=== PATIENT | male | born 1955 | race Caucasian/White ===

== ENCOUNTER 2019-08-14 08:25 | Outpatient (CLI) | payer OTHER, SELFPAY | END 2019-08-14 08:26 | disposition home or self-care (01) | LOC: ANHSURGERY 08:28 | PROVIDERS: PCP Family Medicine Sports Medicine; Visit Provider Surgery | DX: Z01.818 Encounter for other preprocedural examination (principal); K40.90 Unilateral inguinal hernia, without obstruction or gangrene, not specified as recurrent | CPT/HCPCS: 36415; 86850; 86900; 86901 ==

== ENCOUNTER 2019-08-20 00:18 | Outpatient (CLI) | payer OTHER, SELFPAY ==
[2019-08-20 17:01] LABS: SARS-CoV-2 RNA PCR Negative
== END 2019-08-20 00:19 | disposition home or self-care (01) ==
LOC: ANHCOVIDDT 00:18
PROVIDERS: PCP Family Medicine Sports Medicine; Visit Provider Surgery
DX: Z01.818 Encounter for other preprocedural examination (principal); Z11.59 Encounter for screening for other viral diseases
CPT/HCPCS: 87635; C9803; U0003

== ENCOUNTER 2019-08-22 00:30 | Day surgery (SDC) | payer OTHER, SELFPAY ==
[2019-08-09 15:57] VITALS: BMI 24.1
--- NOTE | 2019-08-21 12:19 | P.PNAN_ITS ---
Anes - Initial Pre Proc Eval Procedure: Operation Date: 08/22/19 07:30 Proposed Procedures p Laparoscopic Right Inguinal Hernia Repair With Mesh, Davinci Assisted - Caesar Prasad DO Date/Time: 08/21/19 12:19 Surgeon: Caesar Prasad DO Pre Op Diagnosis: Right Inguinal Hernia Patient Data Age: 63 Gender: M Height: 6 ft Weight: 80.74 kg Allergies Allergy/AdvReac Type Severity Reaction Status Date / Time No Known Allergies Allergy Verified 08/09/19 15:58 Home Medications Medication Instructions Recorded Confirmed Type Vitality Complex 1 cap PO BID 08/09/19 History triamcinolone acetonide [Nasacort] 1 spray INTRANASAL DAILY PRN 08/09/19 08/22/19 History Patient hx anesthesia problems: none Family hx anesthesia problems: none [facility] Social History Social History Smoking status: Never smoker Alcohol intake: never Substance use: never Anes - Eval Final PreProcedure Day of Procedure 08/21/19 12:19 Patient weight: normal Heart: regular rate and rhythm Lungs: clear to auscultation Airway: Mallampati scale class II Neurological: alert and oriented Last oral intake: >/= 8 hours ASA classification: II Emergent: no Anesthetic plan: proceed Anesthesia type and monitoring: general ETT and standard monitoring Informed Consent: The patient's anesthetic plan and its attendant risks and benefits were discussed with the patient/family/POA. Questions were solicited and answers provided to the satisfaction of the patient/family/POA.
[2019-08-22] VITALS (13 sets, daily range): BP systolic 78–133; BP diastolic 50–72; PULSE 50–74; RESP 10–14; TEMP 36.4–36.5; O2SAT 98–100
[2019-08-22] MEDS: LACTATED RINGERS 1,000 ML 30 ML IV CONT ×3 (06:50→09:18)
[2019-08-22] MEDS: IBUPROFEN IV 800 MG/200 ML 800 MG/200 ML BAG 400 MG IVPB (06:57)
--- NOTE | 2019-08-22 07:07 | WPDHPUPDATE1 ---
History and Physical Update Update Date/Time: 08/22/19 07:07 History and Physical has been reviewed, including an updated exam of the patient. There are NO changes in the patient's condition. Risks, benefits, and alternatives have been discussed and questions answered. Patient agrees to proceed with procedure.
[2019-08-22] MEDS: ceFAZolin 2 GM/D5W 50 ML 2 GM/50 ML BAG IVPB (07:22)
[2019-08-22] MEDS: BUPIVACAINE/EPINEPHRINE 0.5% 30 ML VIAL INFILTRATE (08:02)
--- NOTE | 2019-08-22 08:22 | PM.PROC ---
Procedure Note - Detailed Date of procedure: 08/22/19 Pre-op diagnosis: Right Inguinal Hernia Post-op diagnosis: same ([facility]) Procedure performed: Laparoscopic right inguinal hernia repair with Progrip mesh, da Erinn assisted Description of procedure: Procedure as well as risks, benefits, and alternatives were discussed with the patient. Written consent was obtained and placed in chart prior to procedure. Patient was brought back to surgical suite. He was placed supine on operating table. Time-out was done to confirm patient and procedure. He was then intubated by Anesthesia Department. His abdomen was prepped and draped in sterile fashion using chlorhexidine prep. 0.5% bupivacaine with epinephrine was infiltrated at each location for incision. A 12 millimeter transverse incision was made just superior to the umbilicus using a 15 blade scalpel. Blunt dissection was carried out down to the linea alba. A vertical incision was made at the linea alba using a 15 blade scalpel. The peritoneum was then bluntly entered. A 12 millimeter trocar was inserted and carbon dioxide insufflation was used to create a pneumoperitoneum. A camera was inserted and the abdominal cavity was inspected. The patient was placed in slight Trendelenburg position. An 8 millimeter incision was made on the right lateral abdomen and an 8 millimeter trocar was inserted under direct visualization. Another 8 millimeter incision was made in the left lateral abdomen and an 8 millimeter trocar was inserted under direct visualization. The robotic arms were brought up to the patient's bedside and secured to the ports. The camera and instruments were inserted. I then moved over to the robotic console and took control of the camera and instruments. After careful inspection of the abdominal cavity, I began scoring the peritoneum along the right lower quadrant using scissors with electrocautery. The preperitoneal plane was entered and this was carefully dissected caudally along the inferior epigastric vessels. Careful dissection with scissors with electrocautery and blunt dissection was used to continue this dissection. I dissected far enough laterally to allow for mesh placement, and also dissected medially to identify the pubic arch and Peter's ligament. The hernia sac was identified and carefully dissected posteriorly. The cord contents were also identified and the peritoneum was carefully dissected far enough posteriorly to allow for mesh placement. Once an adequate pocket was created, I then placed the mesh within the preperitoneal pocket and carefully unfolded it. The mesh was centered on the hernia defect with adequate overlap circumferentially. The inferior edge of the mesh was inspected to ensure that it was far enough away from the peritoneal edge. The mesh appeared in proper position overlying the entire myopectineal orifice. The peritoneum was then closed over the mesh using a 3-0 V-lock running absorbable suture. The robotic instruments were removed. The robotic arms were disengaged from the ports and moved away from the bedside. The patient was flattened out in bed, the ports were removed under direct visualization, and the pneumoperitoneum was released. The fascia of the umbilical incision was approximated using an 0 Vicryl [id number] suture. The skin of the incisions was approximated using 4-0 Monocryl subcuticular suture, and Exofin glue was applied on top. The patient was awakened from anesthesia, extubated, and transferred to recovery. Implants: Progrip Mesh 10cm x 15cm Anesthesia: GETA and local (0.5% bupivicaine with epi) Surgeon: Caesar Prasad DO Estimated blood loss (mL): 5 Drains: No Packing: No Pathology: none sent Complications: No immediate complications Condition: stable Disposition: same day Findings: Mr Rios is a 63 year old male that presents with a right inguinal hernia. Patient reports he first noticed a lump in the right groin the f
== END 2019-08-22 11:49 | disposition home or self-care (01) ==
PROVIDERS: PCP Family Medicine Sports Medicine; Visit Provider Surgery
PROC: 8E0Y4CZ Robotic Assisted Procedure of Lower Extremity, Percutaneous Endoscopic Approach (ICD-10-PCS; CPT 49650; principal; 2019-08-22 07:30)
DX: K40.90 Unilateral inguinal hernia, without obstruction or gangrene, not specified as recurrent (principal)
CPT/HCPCS: 49650; S2900; A9270; C1781; J0690; J1100; J1170; J1741; J2250; J2405; J2704; J3010; J7120

== ENCOUNTER 2021-11-24 09:25 | Emergency (ER) | payer MEDICARE, SELFPAY ==
--- NOTE | 2021-11-24 09:31 | ECG_ITS ---
Measurements Intervals [place] Rate: 60 P: 67 [place]: 152 QRS: 14 QRSD: 86 T: 24 QT: 403 QTc: 404 Interpretive Statements SINUS RHYTHM WITH SINUS ARRHYTHMIA ANTEROSEPTAL ST ELEVATION MYOCARDIAL INFARCT- ACUTE RECIPROCAL ST DEPRESSION IN INFERIOR LEADS ABNORMAL ECG NO PREVIOUS ECG AVAILABLE FOR COMPARISON Electronically Signed On 11-24-2021 12:23:18 CDT by Cole Rosenbaum D.O.
[2021-11-24 09:34] VITALS: BP 133/73; PULSE 64; RESP 16; TEMP 36.4; O2SAT 100
--- NOTE | 2021-11-24 09:46 | ED.CHESTPAIN ---
HPI - Chest Pain General Chief Complaint: Chest Pain Stated Complaint: CHEST PAIN THIS AM Time Seen by Provider: 11/24/21 09:35 Source: patient and family Mode of arrival: ambulatory Limitations: no limitations History of Present Illness HPI narrative: 66 years old white male drove himself to the emergency room complaining of chest pain, retrosternal, tightness radiating to right upper extremity with diaphoresis started prior to arrival to the emergency room. 8 out of 10, 30 minutes after workout. Patient does not take medicine at home, his older brother of heart attack. Patient does not smoke or drink or uses drugs. Had full dose aspirin prior to arrival. Patient reported that the pain started within 1 hour prior to arrival to the emergency room Related Data Home Medications Medication Instructions Recorded Confirmed Vitality Complex 1 cap PO BID 08/09/19 09/10/19 triamcinolone acetonide 55 mcg 1 spray intranasal DAILY PRN 08/09/19 09/10/19 nasal spray aerosol (Nasacort) Allergic Symptoms Allergies Allergy/AdvReac Type Severity Reaction Status Date / Time No Known Allergies Allergy Verified 11/24/21 09:45 Review of Systems Review of Systems: All systems reviewed & are unremarkable except as noted in HPI and below PMFSH Past Medical History Medical History (Updated 11/24/21 @ 10:08 by Alena Narvaez MD) History of asthma Surgical History Surgical History History of inguinal hernia repair Laparoscopic right inguinal hernia repair with progrip mesh, daVincini assisted 08/22/19 History of knee surgery both knees Family History Family History Father No problems noted. Mother COPD (chronic obstructive pulmonary disease) Sibling Heart attack Sibling Cerebrovascular accident Social History Social History Smoking status: Never smoker Alcohol intake: never Substance use: never Exam Narrative: General appearance: Well-developed, well-nourished Skin: Pale, diaphoretic Head: Normocephalic, nontraumatic Eyes: Clear conjunctiva ENT: Oropharynx normal, ears normal, nose normal Neck: Supple, nontender Chest and respiratory: Airway patent, no respiratory distress, no accessory muscle use Heart: Regular rate/rhythm Abdomen: Soft, nontender, no organomegaly, quiet bowel sounds Vascular: Normal peripheral pulses, normal capillary refill. Musculoskeletal: Normal range of motion, nontender back Neurologic: Alert and oriented ?3, [employer] is normal as tested, no gross motor deficit Course Consultations Consultation #1: dr cruz Date: 11/24/21 Time: 10:09 Consultation #2: dr richard/emergency room at [facility] Date: 11/24/21 Time: 10:10 Vital Signs Vital signs: Vital Signs Temperature 36.4 C L 11/24/21 09:34 Pulse Rate 64 11/24/21 09:34 Respiratory Rate 16 11/24/21 09:34 Blood Pressure 133/73 11/24/21 09:34 Pulse Oximetry 100 11/24/21 09:34 Oxygen Delivery Room Air 11/24/21 09:34 Temperature 36.4 C L 11/24/21 09:34 Pulse Rate 66 11/24/21 10:25 Respiratory Rate 16 11/24/21 10:25 Blood Pressure 134/87 11/24/21 10:25 Pulse Oximetry 98 11/24/21 10:25 Oxygen Delivery Room Air 11/24/21 09:44 MDM - Chest Pain MDM Narrative Medical decision making narrative: Cardiac cath is busy at this time. Having a patient with a STEMI 5 minutes prior to patient arrival to our emergency room., [employer] Gr[employer] Operator/Dr. cruz agreed with the EKG abnormality and it is very suspi
[2021-11-24 09:50] LABS: Basophils Percent Auto 0.4 % (0.2-1.2); Eosinophils Absolute Auto 0.3 K/mm3 (0-0.3); Eosinophils Percent Auto 4.2 % (0-4.4); Hemoglobin 15.3 g/dL (14.0-18.0); Immature Granulocyte Absolute 0.01 K/mm3 (0.00-0.031); Immature Granulocyte Percent A 0.1 % (0-0.5); Lymphocytes Absolute Auto 2.42 K/mm3 (0.9-3.2); Lymphocytes Percent Auto 33.8 % (18.3-44.2); Mean Corpuscular Hemoglobin 31.2 pg (26-34); Mean Corpuscular Volume 91.6 fl (80-100); Monocytes Absolute Auto 0.5 K/mm3 (0.1-0.6); Monocytes Percent Auto 7.3 % (2.6-8.5); Neutrophils Absolute Auto 3.9 K/mm3 (1.3-6.7); Neutrophils Percent Auto 54.2 % (45.5-73.1); Platelet Count Result 181 k/mm3 (150-375); Red Blood Count 4.91 M/mm3 (4.6-6.20); White Blood Count 7.2 K/mm3 (4.5-10.0)
[2021-11-24 10:02] LABS: Alanine Aminotransferase 22 U/L (6-50); Albumin Level 4.4 g/dL (3.5-5.1); Alkaline Phosphatase 79 U/L (38-126); Anion Gap 10 mmol/L (8-16); Aspartate Amino Transferase 31 U/L (17-59); Bilirubin,Total 0.4 mg/dL (0.2-1.3); Blood Urea Nitrogen 18 mg/dL (9-20); Calcium 9.2 mg/dL (8.4-10.2); Carbon Dioxide 24 mmol/L (22-30); Chloride 104 mmol/L (98-107); Estimated CRCL calculation 64 ml/min; Estimated Glomerular Filt Rate > 60; Glucose 153 mg/dL (65-110); Lipase 121 U/L (23-300); Potassium 3.7 mmol/L (3.4-5.0); Sodium 138 mmol/L (137-145)
[2021-11-24 10:03] LABS: Prothrombin Time 12.6 Seconds (11.1-14.7)
[2021-11-24 10:04] LABS: Partial Thromboplastin Time 25.7 SECONDS (22.3-36.8)
[2021-11-24 10:17] LABS: Troponin I 0.062 ng/mL (0.000-0.034)
--- NOTE | 2021-11-24 10:21 | ECG_ITS ---
Measurements Intervals [place] Rate: 68 P: 60 [place]: 165 QRS: -14 QRSD: 87 T: 14 QT: 400 QTc: 426 Interpretive Statements SINUS RHYTHM LOW QRS VOLTAGE IN PRECORDIAL LEADS ANTEROSEPTAL ST ELEVATION MYOCARDIAL INJURY- ACUTE ABNORMAL ECG COMPARED TO ECG 11/24/2021 09:38:48 NO SIGNIFICANT CHANGES Electronically Signed On 11-24-2021 16:49:59 CDT by Cole Rosenbaum D.O.
[2021-11-24 10:25] VITALS: BP 134/87; PULSE 66; RESP 16; O2SAT 98
== END 2021-11-24 10:28 | disposition short-term general hospital (02) ==
PROVIDERS: Emergency Provider Emergency Medicine; PCP Family Medicine Sports Medicine
DX: I21.09 ST elevation (STEMI) myocardial infarction involving other coronary artery of anterior wall (principal); J45.909 Unspecified asthma, uncomplicated
CPT/HCPCS: 36415; 80053; 83690; 84484; 85025; 85610; 85730; 93005; 99291; A9270; J1644; J7030